=== PATIENT | male | born 1990 | race Caucasian/White ===

== ENCOUNTER 2021-10-19 17:48 | Emergency (ER) | payer OTHER ==
[~2021-10-19] VITALS: Ht 177.8 cm; Wt 93.2 kg
[2021-10-19 17:49] VITALS: TEMP 98.2
[2021-10-19] MEDS ORDERED: EPIPEN 2-PAK1 MG/ML IM (20:38)
[2021-10-19] MEDS ORDERED: PREDNISONE50 MG PO (20:38)
[2021-10-19 20:46] VITALS: BP 120/67; PULSE 73
== END 2021-10-19 20:46 | disposition home or self-care (01) ==
LOC: COL.ER 17:48
DX: R21 Rash and other nonspecific skin eruption (principal); T78.1XXA Other adverse food reactions, not elsewhere classified, initial encounter
CPT/HCPCS: J7512